=== PATIENT | female | born 2000 | race Caucasian/White ===

== ENCOUNTER 2024-11-03 03:35 | Emergency (ER) | payer BC, SELFPAY ==
[2024-11-03 03:39] VITALS: BP 134/77; PULSE 64; TEMP 36.8; O2SAT 97; BMI 28.3
[2024-11-03 03:58] LABS: Hemoglobin 13.9 g/dL (12.0-16.0); Mean Corpuscular HGB Conc 33.9 g/dL (29.9-35.2); Mean Corpuscular Hemoglobin 30.3 pg (26.7-34.0); Mean Corpuscular Volume 89.5 fL (81.0-99.0); Mean Platelet Volume 11.1 fL (9.5-13.5); Platelet Count 208 10^3/uL (150-450); Red Blood Count 4.58 10^6/uL (4.20-5.40); Red Cell Distribution Width 12.1 % (11.0-15.0)
--- NOTE | 2024-11-03 04:03 | ED_ITS ---
HPI - Nausea/Vomiting/Diarrhea General Chief complaint: Nausea/Vomiting/Diarrhea Stated complaint: NAUSEA, VOMITING, DIARRHEA Time Seen by Provider: 11/03/24 03:48 Source: patient Mode of arrival: walk-in Limitations: no limitations History of Present Illness HPI Narrative: This 24-year-old female presents for evaluation of nausea vomiting and diarrhea that started around 11 PM. She has been vomiting approximately every 30 minutes and had 3-4 episodes of diarrhea. The patient thinks her father had similar symptoms earlier in the week. She is having abdominal cramping with the diarrhea. She denies the possibility of . She is having chills before throwing up. She is not having any chest pain or shortness of breath. Related Data Home Medications ?Medication ?Instructions ?Recorded ?Confirmed escitalopram oxalate 10 mg tablet 10 mg PO DAILY 11/03/24 11/03/24 (Lexapro) Allergies Allergy/AdvReac Type Severity Reaction Status Date / Time No Known Drug Allergies Allergy Verified 11/03/24 03:41 Review of Systems ROS0 Status of ROS 10 or more systems reviewed and unremark able except as noted in history and below PFSH PFSH Social History Little interest or pleasure in doing things: not at all Feeling down, depressed, or hopeless: not at all Exam Narrative Exam Narrative: Vital signs and Nursing Notes reviewed: Patient is afebrile with a normal pulse, normal blood pressure, she is not hypoxic with pulse ox of 97% on room air General: Awake, alert, oriented, patient is vomiting and having dry heaves, no respiratory distress HEENT: Normocephalic atraumatic, mucous membranes are moist and pink, eyes are clear, normal conjunctiva, vision is grossly intact, posterior pharynx is normal in appearance. Neck: Supple, no meningeal signs, no anterior or posterior cervical lymphadenopathy Chest: Lungs are clear to auscultation with good air entry, there is no wheezing rhonchi or rales appreciated no accessory muscle use, patient is speaking in complete sentences-no chest wall tenderness to palpation CVS: Regular rate and rhythm S1-S2, no murmurs rubs or gallops, pulses are brisk and equal bilaterally ABD: Soft, nondistended, nontender, no rebound guarding or rigidity, bowel sounds are normal, no pulsatile masses appreciated Extremities: Moving all extremities, no lower extremity tenderness or swelling noted, negative Homans' sign, pulses are brisk and equal bilaterally Skin: Normal in appearance without rash,pallor, petechiae or purpura Neuro: No focal deficits Constitutional Vital Signs, click to edit/add: Last Vital Signs Temp 98.2 F 11/03/24 03:39 Pulse 69 11/03/24 06:38 Resp 16 11/03/24 06:38 BP 102/67 11/03/24 06:38 Pulse Ox 95 11/03/24 06:38 O2 Del Method Room Air 11/03/24 06:38 Course Vital Signs Vital signs: Vital Signs Temperature 98.2 F 11/03/24 03:39 Pulse Rate 64 11/03/24 03:39 Respiratory Rate 18 11/03/24 03:39 Blood Pressure 134/77 11/03/24 03:39 Pulse Oximetry 97 11/03/24 03:39 Oxygen Delivery Method Room Air 11/03/24 03:39 Temperature 98.2 F 11/03/24 03:39 Pulse Rate 69 11/03/24 06:38 Respiratory Rate 16 11/03/24 06:38 Blood Pressure 102/67 11/03/24 06:38 Pulse Oximetry 95 11/03/24 06:38 Oxygen Delivery Method Room Air 11/03/24 06:38 MDM - Nausea/Vomiting/Diarrhea MDM Narrative Medical decision making narrative: This 24-year-old female presents for evaluation of nausea vomiting and diarrhea that occurred suddenly around 11 PM. She has multiple episodes of vomiting and several episodes of diarrhea prior to coming to the ER. Upon arrival she was having dry heaves and still vomiting. She denies the possibility of . She is having abdominal cramping and chills but no significant abdominal pain. 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 An IV was placed and she was medicated with IV fluids, Zofran, Toradol and Pepcid. On reevaluation she is feeling better. Routine labs are ordered. She has a mildly elevated white count at 12. She has a stable hemoglobin. Electrolytes liver function test and lipase are normal the exception of a mildly elevated bilirubin likely related to her vomiting. She will be discharged home with a prescription for Zofran, Pepcid and Bentyl. She was encouraged to drink plenty of fluids, rest and return to the emergency department as needed for ongoing or worsening symptoms or inability to tolerate her medications. Lab Data Labs: Lab Results 11/03/24 Range/Units 03:45 WBC 12.0 H (4.0-11.0) 10^3/uL RBC 4.58 (4.20-5.40) 10^6/uL Hgb 13.9 (12.0-16.0) g/dL Hct 41.0 (36.0-48.0) % MCV 89.5 (81.0-99.0) fL MCH 30.3 (26.7-34.0) pg MCHC 33.9 (29.9-35.2) g/dL RDW 12.1 (11.0-15.0) % Plt Count 208 (150-450) 10^3/uL MPV 11.1 (9.5-13.5) fL Seg Neuts % (Manual) 88.0 H (43.0-75.0) Lymphocytes % (Manual) 3.0 L (20.5-60.0) % Monocytes % (Manual) 8.0 (1.7-12.0) % Eosinophils % (Manual) 1.0 (0.9-7.0) % Basophils % (Manual) 1.0 (0.2-2.0) % Promyelocytes % 1.0 Neutrophils # (Manual) 10.56 H (1.4-6.5) 10^3/uL Lymphocytes # (Manual) 0.36 L (1.20-3.80) 10^3/uL Monocytes # (Manual) 0.96 H (0.30-0.80) 10^3/uL Eosinophils # (Manual) 0.12 (0.00-0.70) 10^3/uL Basophils # (Manual) 0.12 H (0.00-0.10) 10^3/uL Promyelocytes # 0.12 Sodium 141 (136-145) mmol/L Potassium 3.6 (3.5-5.1) mmol/L Chloride 102 (98-107) mmol/L Carbon Dioxide 22.5 (21.0-32.0) mmol/L Anion Gap 20.1 BUN 8.0 (7.0-18.0) mg/dL Creatinine 0.95 (0.55-1.02) mg/dL Est GFR ( Amer) >60 (>=60 mL/min/1.73m^2) Est GFR (Non-Af Amer) >60 (>=60 mL/min/1.73m^2) BUN/Creatinine Ratio 8.4 Glucose 121 H (74-106) mg/dL Calcium 9.0 (8.5-10.1) mg/dL Total Bilirubin 1.2 H (0.2-1.0) mg/dL AST 25 (15-37) U/L ALT 31 (14-59) U/L Alkaline Phosphatase 105 (46-116) U/L Total Protein 8.1 (6.4-8.2) g/dL Albumin 4.0 (3.4-5.0) g/dL Globulin 4.1 g/dL Albumin/Globulin Ratio 1.0 Lipase 18.0 (16.0-77.0) U/L Discharge Plan Discharge Chief Complaint: Nausea/Vomiting/Diarrhea Clinical Impression: Gastroenteritis Patient Disposition: Home, Self-Care Time of Disposition Decision: 06:19 Prescriptions / Home Meds: No Action escitalopram oxalate [Lexapro] 10 mg tablet 10 mg PO DAILY Print Language: Tamazight Instructions: Gastroenteritis (ED) Referrals: Physician,Non-Staff, MD [Primary Care Provider] - 1 week Discharge Date/Time: 11/03/24 06:38
[2024-11-03 04:09] LABS: Alanine Aminotransferase 31 U/L (14-59); Alkaline Phosphatase 105 U/L (46-116); Anion Gap 20.1; Aspartate Amino Transferase 25 U/L (15-37); BUN Creatinine Ratio 8.4; Bilirubin Total 1.2 mg/dL (0.2-1.0); Carbon Dioxide 22.5 mmol/L (21.0-32.0); Chloride 102 mmol/L (98-107); Estimated GFR (African America >60 (>=60 mL/min/1.73m^2); Estimated GFR (Non-African Ame >60 (>=60 mL/min/1.73m^2); Globulin 4.1 g/dL; Glucose 121 mg/dL (74-106); Potassium 3.6 mmol/L (3.5-5.1); Sodium 141 mmol/L (136-145); Total Protein 8.1 g/dL (6.4-8.2)
[2024-11-03] MEDS: ONDANSETRON PF 4 MG/2 ML VIAL IV ×2 (04:15→06:37)
[2024-11-03] MEDS: KETOROLAC TROMETHAMINE 30 MG/ML VIAL IVP (04:18)
[2024-11-03] MEDS: FAMOTIDINE/PF 20 MG/2 ML VIAL IV (04:18)
[2024-11-03] MEDS: 0.9 % SODIUM CHLORIDE 1,000 ML 1000 ML IV ×2 (04:18→05:12)
[2024-11-03 04:38] LABS: Basophils Abs Manual 0.12 10^3/uL (0.00-0.10); Eosinophils Absolute Manual 0.12 10^3/uL (0.00-0.70); Lymphocytes Absolute Manual 0.36 10^3/uL (1.20-3.80); Monocytes Absolute Manual 0.96 10^3/uL (0.30-0.80); Promyelocytes Absolute Manual 0.12; Segmented Neut Absolute Manual 10.56 10^3/uL (1.4-6.5)
[2024-11-03 06:38] VITALS: BP 102/67; PULSE 69; O2SAT 95
== END 2024-11-03 06:38 | disposition home or self-care (01) ==
PROVIDERS: Emergency Provider Emergency Medicine
DX: K52.9 Noninfective gastroenteritis and colitis, unspecified (principal)
CPT/HCPCS: 36415; 80053; 83690; 85007; 85027; 96361; 96374; 96375; 96376; 99284; J1885; J2405; J3490

== ENCOUNTER 2025-05-11 00:14 | Emergency (ER) | payer BC, SELFPAY ==
--- OUTSIDE RECORDS SUMMARY | 2010-07-30 06:00 | XMS_ITS | Continuity of Care Document ---
Author Organization [facility] Address [address] [place] [address] Phone Care Team Providers Care Strap Machine Operator Automatic Name Role Phone Maryjane Gerber NP Unavailable Unavailabl e Allergies, Adverse Reactions, Alerts Substance Reaction Status Criticality No Known allergies Procedures Procedure Date MEASURE BLOOD OXYGEN LEVEL [facility] MEASURE BLOOD OXYGEN LEVEL TDAP VACCINE >7 IM Advance Directives Directive Yes / No Effective Date File Name Resuscitation Not Answered N/A N/A Life Support Not Answered N/A N/A Intubation Not Answered N/A N/A Antibiotics Not Answered N/A N/A IV Fluid Support Not Answered N/A N/A Tube Feed Not Answered N/A N/A Other Directive N/A N/A WARNING:The information contained in this section is historical and is provided for information only and does not constitute a legal document or any assurance that the information is still accurate. Please verify the information with the vigil of the legal document before using it for clinical purposes. Encounters Encounter Description Practice Location Reason(s) For Visit Diagnoses Date Provider Providers Copied on Encounter [facility], [address], [place], [id number], tel:[phone] [facility] physical (sport) (chief complaint) No Information Buzz Wesley. [address] [place], [address]. tel:[phone] [facility], [address], [place], [id number], [place] tel:[phone] [facility] No Information Rebeccai DO Mohr. [address], [place], [id number], [place]. tel:[phone] Family History Family Member Type Diagnosis Age At Onset grandparent Problem (finding) Cancer Payers Payer name Insurance type Covered libertarian ID Authoriza tion(s) No Information Social History Type Description Quantity Date Captured Comments Alcohol Use Details Unknown Caffeine Use Details Unknown Tobacco Use Status No Information Smoking Status No Information Sex Female Vital Signs Date / Time: Height Weight BMI Pulse Rate Blood Pressure Temperature Respiratory Rate Body Surface Area Head Circumference Head Circ. Percentile Wt./Aric. Percentile BMI percentile Pulse Ox Inhaled Ox 10:41 AM 57.50 in 119.00 lbs 25.3 0 kg/m eter (2) 109 /min 122/77 mm[Hg] 98.30 F 18 /min 94 99 % Chief Complaint And Reason For Visit From encounter dated '07/30/2010 10:00'. physical (sport) (chief complaint) Reason For Referral Reason For Referral No Information History Of Present Illness Encounter Date Complaint History Of Prese nt Illness No Information Functional Status Date Functional Assessmen t No Information Instructions Date Instruction Additional Infor mation No Information Assessments Type Assessment Date No Information Mental Status Date Cognitive Assessment Normal Orientation Patient Care Teams Name Effective Dates (start - stop) Status Members No Information
[2025-05-11 00:25] VITALS: BP 102/64; PULSE 62; TEMP 36.5; O2SAT 100
--- NOTE | 2025-05-11 00:36 | ED_ITS ---
HPI - Abdominal Pain General Chief Complaint: Abdominal Pain Stated Complaint: ABDOMINAL PAIN Time Seen by Provider: 05/11/25 00:32 Source: patient Mode of arrival: walk-in Limitations: no limitations History of Present Illness HPI narrative: presents complaining of acute onset of abdominal pain the past 4-5 hours. cramping pain associated with nausea and vomiting. No diarrhea. No fever or chills or respiratory symptoms Related Data Home Medications ?Medication ?Instructions ?Recorded ?Confirmed escitalopram oxalate 10 mg tablet 10 mg PO DAILY 11/0305/11/25 (Lexapro) Allergies Allergy/AdvReac Type Severity Reaction Status Date / Time No Known Drug Allergies Allergy Verified 05/11/25 00:19 Review of Systems ROS Status of ROS 10 or more systems reviewed and unremark able except as noted in history and below PFSH PFSH Social History Little interest or pleasure in doing things: not at all Feeling down, depressed, or hopeless: not at all Exam Constitutional Vital Signs, click to edit/add: Last Vital Signs Temp 97.7 F 05/11/25 00:25 Pulse 84 05/11/25 04:41 Resp 20 05/11/25 04:41 BP 110/64 05/11/25 04:41 Pulse Ox 99 05/11/25 04:41 O2 Del Method Room Air 05/11/25 04:41 Common normals: oriented x3, alert and well nourished General appearance: in distress [facility] Common normals: normocephalic and head/scalp atraumatic Eye Common normals: PERRL and EOMs intact bilaterally Respiratory Common normals: normal respiratory effort, no retractions, no use of accessory muscles and clear to auscultation bilaterally Cardio Common normals: regular rate, regular rhythm, S1 normal heart sound and S2 normal heart sound GI Common normals: Normal to inspection, nondistended, normoactive bowel sounds present, soft to palpation and non-tender Extremity Common normals: normal to inspection and full ROM Neuro Common normals: oriented x3, CN's II-XII intact bilaterally, moves all extremities and no focal motor deficits Course Vital Signs Vital signs: Vital Signs Temperature 97.7 F 05/11/25 00:25 Pulse Rate 62 05/11/25 00:25 Respiratory Rate 20 05/11/25 00:25 Blood Pressure 102/64 05/11/25 00:25 Pulse Oximetry 100 05/11/25 00:25 Oxygen Delivery Method Room Air 05/11/25 00:25 Temperature 97.7 F 05/11/25 00:25 Pulse Rate 84 05/11/25 04:41 Respiratory Rate 20 05/11/25 04:41 Blood Pressure 110/64 05/11/25 04:41 Pulse Oximetry 99 05/11/25 04:41 Oxygen Delivery Method Room Air 05/11/25 04:41 MDM - Abdominal Pain MDM Narrative Medical decision making narrative: patient presents with acute abdominal pain associated with vomiting. No diarrhea or fever. last meal 8pm 05/10/25. labs with elevated WBC , hypokalemia and elevated lactic acid. Potassium supplemented. CT with finding of acute appendicitis measuring up to 9mm with minimal fat stranding. appendicoliths at the base. Discussed with switchboard and control room operator surgeon Dr hodgson at [facility] and he accepted the patient. Zosyn ordered. Patient with recurrent nausea and vomiting. Given phenergan x 2 now zofran ordered Lab Data Labs: Lab Results 05/11/25 05/11/25 05/11/25 Range/Units 00:28 02:10 04:55 WBC 15.8 H (4.0-11.0) 10^3/uL RBC 4.34 (4.20-5.40) 10^6/uL Hgb 13.1 (12.0-16.0) g/dL Hct 38.2 (36.0-48.0) % MCV 88.0 (81.0-99.0) fL MCH 30.2 (26.7-34.0) pg MCHC 34.3 (29.9-35.2) g/dL RDW 12.1 (11.0-15.0) % Plt Count 252 (150-450) 10^3/uL MPV 11.6 (9.5-13.5) fL Neut % (Auto) 75.5 H (43.0-75.0) % Lymph % (Auto) 14.1 L (20.5-60.0) % [place]arrard % (Auto) 8.1 (1.7-12.0) % Eos % (Auto) 1.5 (0.9-7.0) % Baso % (Auto) 0.4 (0.2-2.0) % Neut # (Auto) 11.9 H (1.4-6.5) 10^3/uL Lymph # (Auto) 2.2 (1.2-3.8) 10^3/uL [place] # (Auto) 1.3 H (0.3-0.8) 10^3/uL Eos # (Auto) 0.2 (0.0-0.7) 10^3/uL Baso # (Auto) 0.1 (0.0-0.1) 10^3/uL Abs Immat Gran (auto) 0.06 H (0.00-0.03) 10^3/uL Imm/Tot Granulo (auto) 0.4 (0.0-0.5) % Sodium 139 (136-145) mmol/L Potassium 2.9 L* (3.5-5.1) mmol/L Chloride 104 (98-107) mmol/L Carbon Dioxide 21.0 (21.0-32.0) mmol/L Anion Gap 16.9 BUN 10.0 (7.0-18.0) mg/dL Creatinine 0.88 (0.55-1.02) mg/dL Est GFR ( Amer) >60 (>=60 mL/min/1.73m^2) Est GFR (Non-Af Amer) >60 (>=60 mL/min/1.73m^2) BUN/Creatinine Ratio 11.4 Glucose 127 H (74-106) mg/dL Lactate 4.3 H* 1.6 (0.4-2.0) mmol/L Calcium 9.2 (8.5-10.1) mg/dL Total Bilirubin 0.7 (0.2-1.0) mg/dL AST 24 (15-37) U/L ALT 26 (14-59) U/L Alkaline Phosphatase 89 (46-116) U/L Total Protein 8.1 (6.4-8.2) g/dL Albumin 4.1 (3.4-5.0) g/dL Globulin 4.0 g/dL Albumin/Globulin Ratio 1.0 Lipase 105.0 H (16.0-77.0) U/L Urine Color Red A (YELLOW) Urine Clarity Clear (CLEAR) Urine pH 7.0 (5.0-9.0) Ur Specific [place] 1.025 (1.005-1.025) Urine Protein 100 A (NEG/TRACE) mg/dL Urine Glucose (UA) Negative (NEGATIVE) mg/dL Urine Ketones >=80 A (NEGATIVE) mg/dL Urine Occult Blood Large A (NEGATIVE) Urine Nitrite Negative (NEGATIVE) Urine Bilirubin Small A (NEGATIVE) Urine Urobilinogen 4.0 A (0.2-1.0) EU/dL Ur Leukocyte Esterase Negative (NEGATIVE) Urine RBC 5-10 A (0-2) #/HPF Urine WBC 0-2 A (NONE SEEN) #/HPF Ur Squamous Epith Cells Few A (NONE/RARE) #/LPF Urine Crystals None seen (None Seen) #/HPF Urine Bacteria Small A (NONE SEEN) #/HPF Urine Casts None seen (NONE SEEN) #/LPF Urine Mucus Moderate A (NONE SEEN) Ur Culture Indicated? Yes-[facility] Discharge Plan Discharge Chief Complaint: Abdominal Pain Clinical Impression: Acute appendicitis Patient Disposition: [facility]
--- OUTSIDE RECORDS SUMMARY | 2025-05-11 00:38 | XMS_ITS | Encounter Summary ---
Author Organization [facility] Address [address] [facility] [place] [address] Care Team Providers Care Trimmer Helper Name Role Phone Judith Busby DO Primary Care Provider + [phone] Judith Busby DO Unavailable [phone] Lizy Kelley TOY MECHANIC Unavailable [phone] Judith Busby DO Unavailable [phone] Reason for Visit * Reason Onset Date Comments Med Refill 03/05/2024 Encounter Details Date Type Department Care Team (Late st Contact Info) Description 03/05/2024 Refill [facility] [address] [facility] [address] [place] [id number] Judith Busby, [address] [facility] [address] [place], [place] [id number] Social History Tobacco Use Types Packs/Day Years Used Date Smoking Tobacco: Never Smokeless Tobacco: Current Comments:Vapes daily Alcohol Use Standard Drinks/Week Comments Yes 0 (1 standard drink = 0.6 oz pur e alcohol) caffeine: occasional, soda/pop Humiliation, Afraid, Rape, and Kick questionnair e Answer Date Recorded Within the last year, have y ou been afraid of your partner or ex-partner? No 09/04/2023 Within the last year, have y ou been humiliated or emotionally abused in other ways by your partner or ex-partner? No Within the last year, have y ou been kicked, hit, slapped, or otherwise physically hurt by your partner or ex-partner? No 09/04/2023 Within the last year, have y ou been raped or forced to have any kind of sexual activity by your partner or ex-partner? No 09/04/2023 Social Connection and Isolation Panel [NHANES] A nswer Date Recorded In a typical week, how many times do you talk on the phone with family, friends, or neighbors? Never 09/04/20 How often do you get togethe r with friends or relatives? Twice a week 09/04/2023 How often do you attend chur ch or mormon services? Never 09/04/2023 Do you belong to any clubs o r organizations such as scientology groups, unions, fraternal or athletic groups, or school groups? No 09/04/2023 How often do you attend meet ings of the clubs or organizations you belong to? Never 09/04/2023 Are you , , di vorced, , never , or living with a partner? Living with partner 09/04/2023 AUDIT-C Answer Date Recorded Q1: How often do you have a drink containing alc ohol? 2-4 times a month 09/05/2023 Q2: How many drinks containi ng alcohol do you have on a typical day when you are drinking? 1 or 2 09/05/2023 Q3: How often do you have si x or more drinks on one occasion? Never 09/05/2023 Overall Financial Resource Strain (CARDIA) Answe r Date Recorded How hard is it for you to pa y for the very basics like food, housing, medical care, and heating? Not very hard 09/04/2023 PHQ-2 Answer Date Recorded Patient Health Questionnaire-2 Score 0 11/06/2023 [facility]ational Stress Questionnaire Answer Date Recorded Do you feel stress - tense, restless, nervous, or anxious, or unable to sleep at night because your mind is troubled all the time - these days? To some extent 09/04/2023 Exercise Vital Sign Answer Date Recorde d On average, how many days pe r week do you engage in moderate to strenuous exercise (like a brisk walk)? 0 days 09/04/2023 On average, how many minutes do you engage in exercise at this level? 0 min 09/04/2023 Hunger Vital Sign Answer Date Recorded Within the past 12 months, y ou worried that your food would run out before you got the money to buy more. Never true 09/04/20 23 Within the past 12 months, t he food you bought just didn't last and you didn't have money to get more. Never true 09/04/2023 PRAPARE - Transportation Answer Date Re corded In the past 12 months, has l ack of transportation kept you from medical appointments or from getting medications? No 03/2023 In the past 12 months, has l ack of transportation kept you from meetings, work, or from getting things needed for daily living? No 09/04/2023 Housing Stability Vital Sign Answer Fei e Recorded In the last 12 months, was t here a time when you were not able to pay the mortgage or rent on time? No 09/04/2023 In the last 12 months, how many places have you lived? 1 09/04/2023 In the last 12 months, was t here a time when you did not have a steady place to sleep or slept in a long-term (including now)? No 09/04/2023 Comments Unknown Sex and Gender Information Value Date Recorded Sex Assigned at Not on file Legal Sex Female 6:46 PM EDT Gender Identity Not on file Sexual Orientation Not on file documented as of this encounter Plan of Treatment Not on file documented as of this encounter Visit Diagnoses Not on filedocumented in this encounter Additional Health Concerns Assessment Noted Time PHQ-9 Depression Total Score: 11 023 10:45 AM EST documented as of this encounter Care Teams Trimmer Helper Relationship Specialty Start Date End Date Judith Busby DO [address] [place] [address] PCP - General Family Medicine 02/04/23 Judith Busby DO [address] [place] [address] PCP - [place] [facility] 12/29/23 Lizy Kelley NP [address] [place] [address] PCP - [place] [employer] 03/29/24 Judith Busby DO [address] [facility] [address] [place] [address] PCP - [place] [employer] 06/29/24 documented as of this encounter
--- OUTSIDE RECORDS SUMMARY | 2025-05-11 00:38 | XMS_ITS | Encounter Summary ---
Author Organization [facility] Address [address] [facility] [place] [address] Care Team Providers Care Swimming Pool Cleaner Name Role Phone Judith Busby DO Primary Care Provider + [phone] Judith Busby DO Unavailable [phone] Lizy Kelley FARM PLANNER Unavailable [phone] Judith Busby DO Unavailable [phone] Reason for Visit * Reason Onset Date Comments Med Refill 03/02/2024 Encounter Details Date Type Department Care Team (Late st Contact Info) Description 03/02/2024 Refill [facility] [place] [facility] [address] [facility] [address] [place] [phone] Judith Busby, [address] [facility] [address] [place], [place] [id number] Social History Tobacco Use Types Packs/Day Years [...] often do you attend chur ch or baptist services? Never 09/04/2023 Do you belong to any clubs o r organizations such as roman catholic groups, unions, fraternal or athletic groups, or [...] Recorded Patient Health Questionnaire-2 Score 0 11/06/2023 [facility] - Occupational Stress Questionnaire Answer [...] place to sleep or slept in a senior living (including now)? No 09/04/2023 Comments Unknown Sex [...] documented as of this encounter Care Teams Swimming Pool Cleaner Relationship Specialty Start Date End Date Judith Busby DO [address] [place] [address] PCP - General Family Medicine 02/04/23 Judith Busby DO [address] [place] [address] PCP - [employer] 12/29/23 Lizy Kelley NP [address] [place] [address] PCP - [facility] [employer] 03/29/24 Judith Busby DO [address] [facility] [address] [place] [address] PCP - [facility] [employer] 06/29/24 documented as of this encounter
--- OUTSIDE RECORDS SUMMARY | 2025-05-11 00:38 | XMS_ITS | Encounter Summary ---
Author Organization [facility] Address [address] [facility] [place] [address] Care Team Providers Care Racing Secretary Name Role Phone Judith Busby DO Primary Care Provider + [phone] Judith Busby DO Unavailable [phone] Lizy Kelley LITHOGRAPHIC PHOTOGRAPHER Unavailable [phone] Judith Busby DO Unavailable [phone] Reason for Visit * Reason Comments Med Refill Encounter Details Date Type Department Care Team (Late st Contact Info) Description 02/27/2024 Refill [facility] [place] [facility] [address] [facility] [address] [place] [address] Scottie Gonzalez MD [address] [facility] [address] [place] [address] Social History Tobacco Use Types Packs/Day Years [...] often do you attend chur ch or adventist services? Never 09/04/2023 Do you belong to any clubs o r organizations such as nondenominational groups, unions, fraternal or athletic groups, or [...] Recorded Patient Health Questionnaire-2 Score 0 11/06/2023 [facility] - Occupational Stress Questionnaire Answer [...] place to sleep or slept in a snf (including now)? No 09/04/2023 Comments Unknown Sex [...] documented as of this encounter Care Teams Racing Secretary Relationship Specialty Start Date End Date Judith Busby DO [address] [place] [address] PCP - General Family Medicine 02/04/23 Judith Busby DO [address] [place] [address] PCP - [place] [facility] 12/29/23 Lizy Kelley, LITHOGRAPHIC PHOTOGRAPHER [address] [place] [address] PCP - [place] [facility] 03/29/24 Judith Busby DO [address] [place] [address] PCP - [place] [facility] 06/29/24 documented as of this encounter
--- OUTSIDE RECORDS SUMMARY | 2025-05-11 00:38 | XMS_ITS | Encounter Summary ---
Author Organization [facility] Address [address] [place] [address] Care Team Providers Care Incinerator Plant General Supervisor Name Role Phone Judith Busby DO Primary Care Provider [phone] Judith Busby DO Unavailable [phone] Encounter Details Date Type Department Care Team (Late st Contact Info) Description 11/04/2024 Abstract [facility] [address] [facility] [address] [place] [id number] Judith Busby, [address] [facility] [address] [place] [address] Social History Tobacco Use Types Packs/Day Years [...] with family, friends, or neighbors? Never 09/04/20 23 How often do you get togethe r with friends or relatives? Twice a week 09/04/2023 How often do you attend chur ch or anabaptist services? Never 09/04/2023 Do you belong to any clubs o r organizations such as jainism groups, unions, fraternal or athletic groups, or [...] containing alc ohol? 2-4 times a month 05/07/2024 Q2: How many drinks containi ng alcohol do you have on a typical day when you are drinking? 1 or 2 05/07/2024 Q3: How often do you have si x or more drinks on one occasion? Never 05/07/2024 Overall Financial Resource Strain (CARDIA) Answe r Date Recorded How hard is it for you to pa y for the very basics like food, housing, medical care, and heating? Not very hard 09/04/2023 PHQ-2 Answer Date Recorded Patient Health Questionnaire-2 Score 0 11/06/2023 [facility] - Occupational [...] place to sleep or slept in a penitentiary (including now)? No 09/04/2023 Comments Unknown Sex [...] documented as of this encounter Care Teams Incinerator Plant General Supervisor Relationship Specialty Start Date End Date Judith Busby DO [address] [place] [address] PCP - General Family Medicine 02/04/23 Judith Busby, [address] [place] [address] PCP - Paolo Castro 06/29/24 documented as of this encounter
--- OUTSIDE RECORDS SUMMARY | 2025-05-11 00:38 | XMS_ITS | Encounter Summary ---
Author Organization [facility] Address [address] [facility] [place] [address] Care Team Providers Care Tax Audit Manager Name Role Phone Judith Busby DO Primary Care Provider + [phone] Judith Busby DO Unavailable [phone] Lizy Kelley ABE TEACHER Unavailable [phone] Judith Busby DO Unavailable [phone] Reason for Visit * Reason Comments Med Refill Encounter Details Date Type Department Care Team (Late st Contact Info) Description 03/03/2024 Refill [facility] [facility] [address] [facility] [address] [place] [address] Scottie Gonzalez MD [address] [facility] [address] [place] [address] Social History Tobacco Use Types Packs/Day Years [...] often do you attend chur ch or restorationist services? Never 09/04/2023 Do you belong to any clubs o r organizations such as rastafari groups, unions, fraternal or athletic groups, or [...] Recorded Patient Health Questionnaire-2 Score 0 11/06/2023 [facility] - Occupational Stress [...] place to sleep or slept in a long term (including now)? No 09/04/2023 Comments Unknown Sex [...] documented as of this encounter Care Teams Tax Audit Manager Relationship Specialty Start Date End Date Judith Busby DO [address] [place] [address] PCP - General Family Medicine 02/04/23 Judith Busby DO [address] [place] [address] PCP - [place] 12/29/23 Lizy Kelley, ABE TEACHER [address] [place] [address] PCP - [place] 03/29/24 Judith Busby DO [address] [place] [address] PCP - [place] 06/29/24 documented as of this encounter
--- OUTSIDE RECORDS SUMMARY | 2025-05-11 00:38 | XMS_ITS | Clinical Summary ---
Author Organization [facility] Address [address] [place] [address] Care Team Providers Care Data Migration Consultant Name Role Phone Judith Busby DO Primary Care Provider [phone] Allergies No known active allergies Medications Balcoltra 0.1-20 MG-MCG(21) tablet TAKE 1 TABLET BY MOUTH EVERY DAY CONTINUOUSLY 3 Active escitalopram (Lexapro) 10 MG tabletIndicatio ns:Anxiety Take 1 tablet (10 mg) by mouth in the morning. 90 tablet 3 4 Active Active Problems Problem Noted Date Diagnosed Date Dysmenorrhea 11/06/2023 Anxiety 09/07/2023 Assessment & Plan (05/07/2024 9:39 AM EDT): She is doing very well and will stay on current medication. She is to let me know if she wants to try and wean off this in the future but ok to stay on this supervisor intermediates. Assessment & Plan (11/06/2023 2:46 PM EST): She is doing well and encouraged on this. Discussed that there are other options we could try but she wishes to stay on the current medication. She would like to consider getting off of all medications in the future. Assessment & Plan (09/07/2023 11:28 AM EST): Discussed options at length with the pt. Decided to try lexapro. She is to call if any problems or not improving. She is also going to work on getting into a regular exercise routine as well as going to counseling. I will put in a referral for counseling for her. Cervical high risk human pap illomavirus (HPV) DNA test positive 09/05/2023 GERD without esophagitis 09/05/2023 Immunizations Immunization Administration Dates Next Due DTaP 06/01/2002,11/23/2001,12/15/1999 ,05/19/1999 DTaP / Hib 05/23/2002 Hep B, Adolescent or Pediatric 05/19/1999,1997,1998 HiB, unspecified 11/23/2001,12/15/1999, 9 IPV 06/01/2002,11/23/2001 MMR 06/01/2002,05/19/1999 OPV 12/15/1999,05/19/1999 Family History Medical History Relation Name Comments Depression Father Alcohol abuse Maternal Grandfather Depression Maternal Grandfather Suicidality Maternal Grandfather Bipolar disorder Maternal Grandmother Depression Maternal Grandmother Depression Mother Umair's thyroiditis Mother Bipolar disorder Mother's Sister Depression Mother's Sister Relation Name Status Comments Brother Alive Father Alive Maternal Grandfather Maternal Grandmother Mother Alive Mother's Sister Sister Alive Social History Tobacco Use Types Packs/Day Years Used Date Smoking Tobacco: Never Smokeless Tobacco: Current Tobacco Cessation:Ready to Q uit: No; Counseling Given: Not Answered Comments:Vapes daily Alcohol Use Standard Drinks/Week Comments [...] often do you attend chur ch or shinto services? Never 09/04/2023 Do you belong to any clubs o r organizations such as zoroastrianism groups, unions, fraternal or athletic groups, or [...] Recorded Patient Health Questionnaire-2 Score 0 11/06/2023 [facility] - Occupational Stress Questionnaire Answer Date Recorded [...] place to sleep or slept in a residential (including now)? No 09/04/2023 Comments Unknown Sex and Gender Information Value Date Recorded Sex Assigned at Not on file Legal Sex Female 6:46 PM EDT Gender Identity Not on file Sexual Orientation Not on file Last Filed Vital Signs Vital Sign Reading Time Taken Comments Blood Pressure 108/62 05/07/2024 9:25 AM EDT Pulse 68 05/07/2024 9:25 AM EDT Temperature 37 C (98.6 F) 05/07/2024 9:25 AM EDT Respiratory Rate - - Oxygen Saturation 98% 05/07/2024 9:25 AM EDT Inhaled Oxygen Concentration - - Weight 76.2 kg (168 lb) 05/07/2024 9:25 AM EDT Height 162.6 cm (5' 4 ) 05/07/2024 9:25 AM EDT Body Mass Index 28.84 05/07/2024 9:25 AM EDT Plan of Treatment Health Maintenance Due Date Last Done Comments Influenza Vaccine (#1) 2025 Insurance [facility] Care Teams Data Migration Consultant Relationship Specialty Start Date End Date Judith Busby DO [address] [address] PCP - General Family Medicine 02/04/23
--- OUTSIDE RECORDS SUMMARY | 2025-05-11 00:38 | XMS_ITS | Clinical Summary ---
Author Organization [facility] Address [address] [place] [address] Care Team Providers Care Registered Nurse Name Role Phone Unavailable Primary Care Provider Unavailabl e Allergies No known active allergies Medications No known medications Immunizations Immunization Administration Dates Next Due Haemophilus influenzae b (Hi b) vaccine, unspecified formulation 11/23/2001,12/15/1999,05/19/1999 diphtheria tetanus pertussis (DTaP) vaccine, pediatric (INFANRIX) 06/01/2002,11/23/2001,12/15/1999,1998 diphtheria tetanus pertussis-Haemophilus influenzae b (DTaP-Hib) vaccine (TRIHIBIT) 05/23/2002 hepatitis B (HepB) vaccine, 3-dose series, age 0 yr - 19 yr (ENGERIX B-PEDS, RECOMBIVAX HB-PEDS) 05/19/1999,1998,1998 measles mumps rubella (MMR) vaccine (M-M-R II, PRIORIX) 06/01/2002,05/19/1999 poliovirus (IPV) vaccine, in activated (IPOL) 06/01/2002,11/23/2001 poliovirus (OPV) vaccine, tr ivalent, live, oral (ORIMUNE) 12/15/1999,05/19/1999 Family History Medical History Relation Comments None Father None Mother None Sister Relation Status Comments Father Mother Sister Social History Tobacco Use Types Packs/Day Years Used Date Smoking Tobacco: Never Assessed Comments No Sex and Gender Information Value Date Recorded Sex Assigned at Not on file Legal Sex Female 8:27 AM EST Gender Identity Not on file Sexual Orientation Not on file Last Filed Vital Signs Vital Sign Reading Time Taken Comments Blood Pressure - - Pulse - - Temperature 37.2 C (99 F) 11/17/2009 2:14 PM EST Respiratory Rate - - Oxygen Saturation - - Inhaled Oxygen Concentration - - Weight 42.8 kg (94 lb 6.4 oz) 11/17/2009 2:14 PM EST Height - - Body Mass Index - - Plan of Treatment Health Maintenance Due Date Last Done Comments DTaP,Tdap,Td Vaccine (5 - Tdap) 2009 06/01/2002, 05/23/2002, 11/23/2001, Additional history exists Anxiety Screening 2016 Depression Screening 2016 HIV Screening 2016 Hepatitis C Screening 2016 Cervical Cancer Screening 2019 HPV Vaccine (1 - 3-dose SCDM series) 2025 Influenza Vaccine (#1) 2025 Hepatitis B Vaccine Completed 05/19/1999, 1998, 1998 Insurance [employer]
--- OUTSIDE RECORDS SUMMARY | 2025-05-11 00:39 | XMS_ITS | CCD ---
Author Organization [facility] Inform ion Partnership [facility] Care Team Providers Care Planning Lead Name Role Phone Judith Busby DO Primary Care Provider JUDITH BUSBY Attending Unavailable JUDITH BUSBY Referring Unavailable HIEN CARRERO Attending Unavailable JUDITH BUSBY Attending Unavailable JUDITH BUSBY Attending Unavailable JUDITH BUSBY Referring Unavailable Medications Current Medications Medication Drug Class(es) Dates Sig (Normalized) Sig (Original) escitalopram 10 mg oral tablet (1 source) Serotonin Reuptake Inhibitor Start: 09-05-2023 take 1 tablet by mouth in the morning escitalopram (Lexapro) 10 MG tablet Indications: Anxiety Take 1 tablet (10 mg) by mouth in the morning. 30 tablet 3 09/05/2023 Active Ethinyl Estradiol / Levonorgestrel (1 source) Progestin, Estrogen, Progestin-containi ng Intrauterine Device Start: 04-28-2023 take 1 tablet by mouth once daily Balcoltra 0.1-20 MG-MCG(21) tablet TAKE 1 TABLET BY MOUTH EVERY DAY CONTINUOUSLY 0 04/28/2023 Active ibuprofen 800 mg oral tablet (1 source) Nonsteroidal Anti-inflammatory Drug Start: 05-13-2022 take 1 tablet by mouth every eight hours as needed for pain ibuprofen 800 MG tablet Take 800 mg by mouth every 8 (eight) hours if needed for mild pain 0 05/13/2022 Active Problems Active Problems Problem Classification Problem Date Documented Date Episodic/Chronic Anxiety disorders (2 sources) Anxiety; Translations: [Anxiety disorder, unspecified] Onset: 09-07-2023 11-06-2023 Chronic Esophageal disorders (1 source) Gastroesophageal reflux disease without esophagitis; Translations: [Gastro-esophageal reflux disease without esophagitis] Onset: 09-05-2023 09-05-2023 Chronic Menstrual disorders (1 source) Dysmenorrhea; Translations: [Dysmenorrhea, unspecified] Onset: 11-06-2023 11-06-2023 Chronic Sexually transmitted infections (not HIV or hepatitis) (1 source) Human papillomavirus deoxyribonucleic acid test positive, high risk on cervical specimen; Translations: [Cervical high risk human papillomavirus (HPV) DNA test positive] Onset: 09-05-2023 09-05-2023 Episodic Past or Other Problems Problem Classification Problem Date Documented Da te Episodic/Chronic Mood disorders (1 source) Mood disorders Onset: 09-05-2023 09-05-2023 Vital Signs Date Time Vital Sign Value Performing Clinician Faci lity 11-06-2023 10:37-0500 Body height 162.6 cm Judith Petznick DO Work Phone: [facility] 11-06-2023 10:37-0500 Body mass index (BMI) [Ratio] 29.87 kg/m2 Judith Petznick DO Work Phone: [facility] 11-06-2023 10:37-0500 Body temperature 98.29 [degF] Judith Petznick DO Work Phone: [facility] 11-06-2023 10:37-0500 Body weight 78.93 kg Judith Petznick DO Work Phone: [facility] 11-06-2023 10:37-0500 Diastolic blood pressure 66 mm[Hg] Judith Petznick DO Work Phone: [facility] 11-06-2023 10:37-0500 Heart rate 78 /min Judith Petznick DO Work Phone: [facility] 11-06-2023 10:37-0500 SaO2% (BldA) [Mass fraction] 98 % Judith Petznick DO Work Phone: [facility] 11-06-2023 10:37-0500 Systolic blood pressure 116 mm[Hg] Judith Petznick DO Work Phone: [facility] Encounters Encounter Date Encounter Type Care Provider Facility Start: 05-07-2024 End: 05-07-2024 ambulatory JUDITH BUSBY Not Available Start: 02-06-2024 End: 02-06-2024 ambulatory HIEN CARRERO Not Available Start: 11-06-2023 End: 11-06-2023 Office outpatient visit 15 minutes Judith Busby DO Work Phone: [facility] 230 Comment on above: Anxiety (Primary Dx) Start: 11-06-2023 End: 11-06-2023 ambulatory JUDITH BUSBY Not Available Start: 09-05-2023 End: 09-05-2023 ambulatory JUDITH BUSBY Not Available Plan of Treatment Date Care Activity Detail Author Start: 05-30-2024 Influenza vaccination Influenza Vacc ine (#1) [facility] Comment on above: Postponed from 05/30 (Patient Refused) Start: 05-07-2024 End: 05-07-2024 Patient encounter procedure 05/07/2024 9:30 AM EDT Office Visit [facility] [address] [place] [address] Kehinde Judith Gisela, DO [address] [place] [address] [facility] [address] Start: 01-27-2024 End: 01-27-2024 Patient encounter procedure 01/27/2024 3:15 PM EDT Office Visit [facility] [address] [place] [address] Scottie Gonzalez MD [address] [place] [address] [facility] Immunizations Immunization Date Immunization Notes Care Provider Fa cili 06-01-2002 diphtheria, tetanus toxoids and acellular pertussis vaccine Judith Petznick DO Work Phone: [facility] 06-01-2002 measles, mumps and rubella virus vaccine Judith Petznick DO Work Phone: [facility] 06-01-2002 poliovirus vaccine, inactivated Judith Petznick DO Work Phone: [facility] 05-23-2002 DTaP-Haemophilus influenzae type b conjugate vaccine Judith Petznick DO Work Phone: [facility] 11-23-2001 diphtheria, tetanus toxoids and acellular pertussis vaccine Judith Petznick DO Work Phone: [phone] [place] [address] 11-23-2001 haemophilus influenz ae type b vaccine, conjugate unspecified formulation Judith Petznick DO Work Phone: [facility] 11-23-2001 poliovirus vaccine, inactivated Judith Petznick DO Work Phone: [phone] [place] [address] 12-15-1999 diphtheria, tetanus toxoids and acellular pertussis vaccine Judith Petznick DO Work Phone: [facility] 12-15-1999 haemophilus influenz ae type b vaccine, conjugate unspecified formulation Judith Petznick DO Work Phone: [facility] 12-15-1999 trivalent poliovirus vaccine, live, oral Judith Petznick DO Work Phone: [facility] 05-19-1999 diphtheria, tetanus toxoids and acellular pertussis vaccine Judith Petznick DO Work Phone: [facility] 05-19-1999 haemophilus influenz ae type b vaccine, conjugate unspecified formulation Judith Petznick DO Work Phone: [facility] 05-19-1999 hepatitis B vaccine, pediatric or pediatric/adolescent dosage Judith Petznick DO Work Phone: [facility] 05-19-1999 measles, mumps and rubella virus vaccine Judith Petznick DO Work Phone: [facility] 05-19-1999 trivalent poliovirus vaccine, live, oral Judith Petznick DO Work Phone: [facility] 1998 hepatitis B vaccine, pediatric or pediatric/adolescent dosage Judith Petznick DO Work Phone: [facility] 1998 hepatitis B vaccine, pediatric or pediatric/adolescent dosage Judith Petznick DO Work Phone: [facility] Payers Date Payer Category Payer Unknown BCBS BCBS [id number] 2023-Present [phone] [address] [place] [address] [id number] 2023 Unknown [id number] 2022 Unknown [id number] 1998 Unknown [id number] 1998 Unknown [id number] 1998 Unknown [id number] 1998 Unknown [id number] Social History Date Type Detail Facility Start: 05-25-2023 Tobacco smoking status [facility] Never sm oked tobacco [facility] Start: 05-25-2023 Tobacco use and exposure User of smokeless tobacco [facility] Start: 11-06-2023 Alcohol intake Current drinke r of alcohol (finding) [facility] Start: 09-04-2023 End: 11-06-2023 [facility] of [facility] function [facility] Start: 09-04-2023 End: 11-06-2023 Humiliation, Afraid, Rape, and Kick questionnaire [HARK] [facility] Within the last year , have you been afraid of your partner or ex-partner? No [facility] Are you now , , , , never or living with a partner? Living with partner [facility] How often to you hav e a drink containing alcohol? 2-4 times a month [facility] How many standard dr inks containing alcohol do you have on a typical day? 1 or 2 [facility] How often do you hav e 6 or more drinks on 1 occasion? Never [facility] How hard is it for y ou to pay for the very basics like food, housing, medical care, and heating Not very hard [facility] Do you feel stress - tense, restless, nervous, or anxious, or unable to sleep at night because your mind is troubled all the time - these days [OSQ] To some extent [facility] (I/We) worried wheth er (my/our) food would run out before (I/we) got money to buy more. Never true [facility] In the past 12 month s, has lack of transportation kept you from medical appointments or from getting medications? No [facility] Start: 05-25-2023 Tobacco Comment Vapes daily [facility] Start: 05-27-2023 Alcohol Comment caffeine: occa sional, soda/pop [facility] Start: 2000 Sex Assigned At Not on file [facility] History of Present illness Narrative 11-06-2023 Judith Busby DO - 11/06/2023 2:46 PM ESTJudith Busby DO - 11/06/2023 10:45 AM EST Note Date & Type Note Facility 11-06-2023 History of Presen t illness Narrative Associated Problem(s): Anxiety She is doing well and encouraged on this. Discussed that there are other options we could try but she wishes to stay on the current medication. She would like to consider getting off of all medications in the future. Images from the original note were not included. Bijal Trinh is a 23 y.o. female presents with chief complaint of Anxiety HPI: Anxiety Patient is here for a follow up of anxiety. Symptoms started when she was 15 and have been off an on since then. Counseling: not yet Medication: Lexapro 10 mg She is feeling about 90% better with Lexapro. She was feeling tired when she first started it but that has seen improve. Sex drive has declined. She would like to discuss option with different medication but it overall happy with Lexapro SUBJECTIVE: See medication list at the end of the note. No Known Allergies REVIEW OF SYMPTOMS: Review of Systems Constitutional: Negative for fatigue. Respiratory: Negative for cough and shortness of breath. Cardiovascular: Negative for chest pain and palpitations. Psychiatric/Behavioral: Negative for sleep disturbance. The patient is nervous/anxious. OBJECTIVE: Visit Vitals BP 116/66 Pulse 78 Temp 98.3 F Ht 5' 4 Wt 174 lb SpO2 98% BMI 29.87 kg/m Smoking Status Never BSA 1.89 m Physical Exam Constitutional: General: She is not in acute distress. Appearance: Normal appearance. Cardiovascular: Rate and Rhythm: Normal rate and regular rhythm. Heart sounds: No murmur heard. No friction rub. No gallop. Pulmonary: Breath sounds: Normal breath sounds. No wheezing, rhonchi or rales. Musculoskeletal: General: No swelling. Neurological: Mental Status: She is alert. ASSESSMENT AND PLAN: Problem List Items Addressed This Visit Anxiety - Primary She is doing well and encouraged on this. Discussed that there are other options we could try but she wishes to stay on the current medication. She would like to consider getting off of all medications in the future. Follow up in about 6 months (around 05/06/2024) for Recheck. Patient's Medications New Prescriptions No medications on file Previous Medications BALCOLTRA 0.1-20 MG-MCG(21) TABLET TAKE 1 TABLET BY MOUTH EVERY DAY CONTINUOUSLY ESCITALOPRAM (LEXAPRO) 10 MG TABLET Take 1 tablet (10 mg) by mouth in the morning. IBUPROFEN 800 MG TABLET Take 800 mg by mouth every 8 (eight) hours if needed for mild pain Modified Medications No medications on file Discontinued Medications No medications on file documented in this encounter [facility] Evaluation note Note Date & Type Note Facility Evaluation note Diagnosis Anxiety- Primary Anxiety state, unspecified documented in this encounter [facility] Summary Purpose Family History No Family History Records Found Advance Directives No Advanced Directives Records Found Additional Source Comments Reason for Visit (unrecogniz ed section and content) Reason Comments Anxiety Care Teams (unrecognized sec tion and content) Planning Lead Relationship Specialty Start Date End Date Judith Busby DO [address] [place] [address] PCP - General Family Medicine 02/04/23 INFORMATION SOURCE (unrecogn ized section and content) DATE CREATED AUTHOR 05/09/2024 [facility] FOR RECORDS PERTAINING TO PATIENTS WHO ARE OR HAVE BEEN ENROLLED IN A CHEMICAL DEPENDENCY/SUBSTANCEABUSE PROGRAM, SOME INFORMATION MAY BE OMITTED. This clinical summary was aggregated from multiple sources. Caution should be exercised in using it in the provision of clinical care. This summary normalizes information from multiple sources, and as a consequence, information in this document may materially change the coding, format and clinical context of patient data. In addition, data may be omitted in some cases. CLINICAL DECISIONS SHOULD BE BASED ON THE PRIMARY CLINICAL RECORDS. [facility]. provides no warranty or guarantee of the accuracy or completeness of information in this document.
[2025-05-11 00:44] LABS: Hematocrit 38.2 % (36.0-48.0); Hemoglobin 13.1 g/dL (12.0-16.0); Immature Granulocytes Abs Auto 0.06 10^3/uL (0.00-0.03); Immature Granulocytes Pct Auto 0.4 % (0.0-0.5); Lymphocytes Absolute Auto 2.2 10^3/uL (1.2-3.8); Mean Corpuscular HGB Conc 34.3 g/dL (29.9-35.2); Mean Corpuscular Hemoglobin 30.2 pg (26.7-34.0); Mean Corpuscular Volume 88.0 fL (81.0-99.0); Platelet Count 252 10^3/uL (150-450); Red Blood Count 4.34 10^6/uL (4.20-5.40); White Blood Count 15.8 10^3/uL (4.0-11.0)
[2025-05-11] MEDS: PROMETHAZINE HCL 25 MG in 0.9 % SODIUM CHLORIDE 50 ML 204 MG IV ×2 (00:57→04:06)
[2025-05-11] MEDS: FENTANYL CITRATE/PF 100 MCG/2 ML VIAL IV (00:57)
[2025-05-11 00:58] LABS: Alanine Aminotransferase 26 U/L (14-59); Albumin Globulin Ratio 1.0; Albumin Level 4.1 g/dL (3.4-5.0); Alkaline Phosphatase 89 U/L (46-116); Anion Gap 16.9; Aspartate Amino Transferase 24 U/L (15-37); Blood Urea Nitrogen 10.0 mg/dL (7.0-18.0); Calcium 9.2 mg/dL (8.5-10.1); Carbon Dioxide 21.0 mmol/L (21.0-32.0); Chloride 104 mmol/L (98-107); Estimated GFR (African America >60 (>=60 mL/min/1.73m^2); Estimated GFR (Non-African Ame >60 (>=60 mL/min/1.73m^2); Globulin 4.0 g/dL; Glucose 127 mg/dL (74-106); Lipase 105.0 U/L (16.0-77.0); Sodium 139 mmol/L (136-145); Total Protein 8.1 g/dL (6.4-8.2)
[2025-05-11] MEDS: 0.9 % SODIUM CHLORIDE 1,000 ML 999 ML IV ×2 (00:58→03:29)
[2025-05-11 01:02] LABS: Potassium 2.9 mmol/L (3.5-5.1)
[2025-05-11 01:03] LABS: Lactate/Lactic Acid 4.3 mmol/L (0.4-2.0)
[2025-05-11] MEDS: POTASSIUM CHLORIDE IN WATER 10 MEQ/100 ML PREMIX 100 MEQ IV ×4 (01:26→05:10)
[2025-05-11 02:30] LABS: Glucose Urine UA NEGATIVE (NEGATIVE)
[2025-05-11 02:39] LABS: Cast Seen? NONE SEEN #/LPF (NONE SEEN); Crystals Seen? None Seen #/HPF (None Seen); Urine Culture Indicated YES-FRMC
[2025-05-11 03:05] VITALS: BP 95/61; PULSE 60; O2SAT 98
[2025-05-11 03:57] VITALS: BP 103/61; PULSE 81; O2SAT 98
[2025-05-11 04:41] VITALS: BP 110/64; PULSE 84; O2SAT 99
[2025-05-11] MEDS: PIPERACILLIN SODIUM/TAZOBACTAM 3.375 GM in 0.9 % SODIUM CHLORIDE 50 ML IV (05:02)
[2025-05-11 05:21] LABS: Lactate/Lactic Acid 1.6 mmol/L (0.4-2.0)
[2025-05-11 06:56] VITALS: BP 114/66; PULSE 50; O2SAT 97
== END 2025-05-11 08:34 | disposition short-term general hospital (02) ==
PROVIDERS: Emergency Provider Internal Medicine
DX: K35.80 Unspecified acute appendicitis (principal); R10.84 Generalized abdominal pain; R11.2 Nausea with vomiting, unspecified
CPT/HCPCS: 36415; 74177; 80053; 81001; 83605; 83690; 85025; 87086; 96365; 96366; 96367; 96368; 96375; 99285; J2405; J2543; J2550; J3010; J3480; Q9967